=== PATIENT | female | born 1985 | race Caucasian/White ===

== ENCOUNTER 2021-01-25 16:58 | Emergency (ER) | payer MEDICAID ==
[~2021-01-25] VITALS: Ht 162.6 cm; Wt 63.6 kg
[2021-01-25 17:24] VITALS: BP 112/78
--- NOTE | 2021-01-25 17:55 | NUR ---
TC TO [facility] FOR REPORT NUMBER. INCIDENT OCCURRED ON 01/24/21. REPORT NUMBER: [id number]
[2021-01-25] MEDS ORDERED: ERYT1OIN6 RIGHTEYE (19:59)
== END 2021-01-25 19:57 | disposition home or self-care (01) ==
LOC: ER 16:59 → EEVIPCON 16:59 → ER 19:57
DX: S06.0X0A Concussion without loss of consciousness, initial encounter (principal); T65.893A Toxic effect of other specified substances, assault, initial encounter; H10.31 Unspecified acute conjunctivitis, right eye; Z88.2 Allergy status to sulfonamides; Y04.0XXA Assault by unarmed brawl or fight, initial encounter; Y93.89 Activity, other specified; Y92.89 Other specified places as the place of occurrence of the external cause; Y99.8 Other external cause status
CPT/HCPCS: 70450; 70486; 99285